=== PATIENT | female | born 1970 | race Caucasian/White ===

== ENCOUNTER 2016-03-21 08:48 | Emergency (ER) | payer BC ==
[2016-03-21 08:54] VITALS: TEMP 98.1; BMI 31.4
[2016-03-21] MEDS ORDERED: PROMETHAZINE 25 MG/ML VIAL IV ONE (10:17)
[2016-03-21] MEDS ORDERED: HYDROmorphone 1 MG INJECTION IV ONE (10:17)
[2016-03-21] MEDS ORDERED: NS 1,000 ML IV ONE (10:18)
[2016-03-21] MEDS ORDERED: DEXAMETHASONE PF 10 MG/1 ML VIAL IV ONE (10:18)
--- NOTE | 2016-03-21 10:20 | EDPRACDOC ---
- General Information Chief Complaint: Headache Stated Complaint: HEADACHE Time Seen by Provider: 03/21/16 10:15 Information Source: Patient Home Medications: Home Medications Alprazolam [Xanax] 1 mg PO BID PRN 03/21/12 Multivitamin [Multiple Vitamins Daily] 1 each PO DAILY 03/21/12 Rizatriptan Benzoate [Maxalt] 10 mg PO BID PRN 03/21/12 Oxycodone Immediate Release [Oxy-Ir] 5 - 10 mg PO Q6H PRN 06/02/13 Promethazine [Phenergan] 25 mg PO Q8H PRN #14 tab 06/02/13 Carvedilol [Coreg] 3.125 mg PO BID 05/29/15 Levothyroxine [Synthroid, Levoxyl] 50 mcg PO DAILY 05/29/15 Lamotrigine [Lamictal] 150 mg PO DAILY 08/18/15 Butalb/Acetaminophen/Caffeine [Fioricet 50-325-40 mg Tablet] 2 each PO Q4-6H PRN #30 tablet 03/21/16 Promethazine [Phenergan] 25 mg PO Q8H PRN #30 tab 03/21/16 Rizatriptan Benzoate [Maxalt] 10 mg PO . PRN #30 tablet 03/21/16 Allergies/Adverse Reactions: Allergies Allergy/AdvReac Type Severity Reaction Status Date / Time Sulfa (Sulfonamide AdvReac Mild Nausea only Verified 03/21/16 08:52 Antibiotics) - History of Present Illness HPI: PATIENT HAS CHRONIC MIGRAINE HEADACHES. TAKES MAXALT AND FIORICET WHICH USUALLY RESOLVES. NOW STATING PAIN WORSE. PHOTOPHOBIA. RIGHT SIDED HEADACHE. NAUSEA. TYPICAL FOR MIGRAINE Location: Reports: Parietal (RIGHT) Pain Quality: Reports: Moderate Modifying Factors: improves with: Exposure to light Prior work up: Reports: CT, Neurologist Relevant History of: Reports: Known Headache disorder Associated Signs and Symptoms: Reports: Frequent Headaches, Nausea/Vomiting. Denies: Loss of Consciousness, Stiff Neck, Vision Changes ED Past Medical History - History Reviewed Yes Nurses notes reviewed and agree except as marked Travel Outside of [place] in the Last 3 Months?: No - Patient Medical History Neurological History: Reports: Migraine Cardiac History: Reports: Hypertension Psychological History: Reports: Depression - Social Medical History Smoking Status: Never smoker ETOH: None Substance Abuse: None Lives With: Family Lives In: Home EDM Review of Systems - Review of Systems ROS Negative Except as Marked: Yes All systems reviewed and were negative except as marked Constitutional: No Symptoms Reported. negative: Fever, Chills, Weakness, Fatigue, Loss of Appetite Eyes: No Symptoms Reported. negative: Redness, Blurred Vision, Double Vision, Discharge, Pain, Light Sensitive, Photophobia Ears: No Symptoms Reported. negative: Pain, Hearing Loss, Drainage, Ear Pulling Throat: No Symptoms Reported. negative: Pain, Swelling Nose: No Symptoms Reported. negative: Congestion, Bleeding, Discharge, Injection, Swelling, Deformity, Ecchymosis, Tender, Abrasion, Laceration Mouth: No Symptoms Reported. negative: Pain, Drooling Respiratory: No Symptoms Reported. negative: Cough, Brassy Cough, Barky Cough, Shortness of Breath, Wheezing, Hemoptysis Cardiovascular: No Symptoms Reported. negative: Chest Pain, Palpitations, Syncope, Edema, Orthopnea, PND, Skin Mottling, Cyanosis Gastrointestinal: No Symptoms Reported. negative: Pain, Constipation, Nausea, Vomiting, Diarrhea, Melena, Formula Intolerance Genitourinary: No Symptoms Reported. negative: Dysuria, Hematuria, Frequency, Discharge, Bleeding, Testicular Pain, Neurological: Headache. negative: Dizziness, Gait Difficulty, Numbness, Seizure , Speech Difficulty, Weakness Musculoskeletal: No Symptoms Reported. negative: Neck, Chestwall, Ribs, Back, Shoulder, Arm, Elbow, Forearm, Wrist, Hand, Pelvis, Hip, Femur, Knee, Leg, Ankle , Foot Integumentary: No Symptoms Reported. negative: Itching, Rash, Bruising, Wound Allergic/Immunologic: No Symptoms Reported. negative: Hives, Itching Hematologic: No Symptoms Reported. negative: Lymphadenopathy, Easy Bruising, Easy Bleeding Endocrine: No Symptoms Reported. negative: Weight Gain, Weight Loss Psychiatric: No Symptoms Reported. negative: Anxiety, Depression, Hallucinations, Insomnia, Suicidal - Physical Exam Constitutional: Alert (Awake), No apparent distress Oriented to: Time, Person, Place Last recorded Vital Signs: Last Vital Signs Temp 98.1 F 03/21/16 08:52 Pulse 84 03/21/16 08:52 Resp 20 03/21/16 08:52 BP 137/77 03/21/16 08:52 Pulse Ox 98 03/21/16 08:52 Oxygen Pulse Oxygen Saturation 98 O2 Device Room Air Oxygen Flow Rate Fraction of Inspired Oxygen ( FIO2) - HEENT Head: Normal ( normocephalic) Eye Exam: Normal (PERRL, EOMI, Sclera white) Oropharynx: Normal (Pharynx:Moist without exudate,Gums-no swelling) Tympanic Membrane: Normal ENT EAC: Normal TMJ: Normal Nose: No Symptoms Reported (septum midline) Neck: Normal (FROM, trachea at midline) - Respiratory/Cardiovascular Respiratory: Normal - CTA (BBS clear to auscultation without adventitious sounds ) Cardiovascular: Normal (RRR without murmur, gallop or rub) - GI Auscultation: Normal (NABS) Palpation: Normal (Soft,No rebound or guarding, non distended) Tenderness: Non tender Ames's Sign: Negative - Musculoskeletal Back: Normal (Non-Tender) Extremities: Normal (Normal tone, Pulses 2+ No cyanosis or edema, FROM) - Integumentary Skin: Normal, Warm, Dry Lymphatics: Normal (no adenopathy) - Neurologic Memory Impaired: Normal Motor Function: Normal (Normal tone, Pulses 2+ No cyanosis or edema, FROM) Cranial Nerve: Normal (CN II-X11 intact sensation, strength 5/5) Cerebellar: Normal Mood Description: Normal Perception: Normal - Differential Diagnosis Migraine - Departure Yes I personally saw and evaluated the patient. Disposition: Home Condition: Good Final Diagnosis: Migraine headache without aura Qualifiers: Status migrainosus presence: without status migrainosus Intractability: not intractable Qualified Code(s): G43.009 - Migraine without aura, not intractable , without status migrainosus Instructions: Acute Headache (ED) Education/Counseling Given To: Patient Education/Counseling Given Regarding: Diagnosis, Treatment, Prognosis, Follow Up Prescriptions: Butalb/Acetaminophen/Caffeine [Fioricet 50-325-40 mg Tablet] 2 each PO Q4-6H PRN #30 tablet PRN Reason: Migraine Headache Promethazine [Phenergan] 25 mg PO Q8H PRN #30 tab PRN Reason: Nausea/Vomiting Rizatriptan Benzoate [Maxalt] 10 mg PO . PRN #30 tablet PRN Reason: Headache
[2016-03-21] MEDS ORDERED: KETOROLAC TROMETH 30 MG/ML VIAL IV ONE (11:51)
[2016-03-21 11:55] VITALS: PULSE 78
[2016-03-21 12:09] VITALS: BP 125/74
== END 2016-03-21 12:06 | disposition home or self-care (01) ==
LOC: ED 08:48
DX: G43.009 Migraine without aura, not intractable, without status migrainosus (principal); I10 Essential (primary) hypertension; Z79.899 Other long term (current) drug therapy
CPT/HCPCS: 96361; 96374; 96375; 99284; J1100; J1170; J1885; J2550